=== PATIENT | female | born 1975 | race African-American/Black ===

== ENCOUNTER 2019-07-01 08:52 | Day surgery (SDC) | payer BC ==
[2019-06-30 17:52] VITALS: BMI 28.7
[2019-07-01 10:43] VITALS: TEMP 98.3
[2019-07-01 11:10] VITALS: BP 118/66; PULSE 63
== END 2019-07-01 11:14 | disposition home or self-care (01) ==
LOC: JASU-SURG 08:52
PROVIDERS: ATTEND Internal Medicine Gastroenterology
PROC: 0DJD8ZZ Inspection of Lower Intestinal Tract, Via Natural or Artificial Opening Endoscopic (ICD-10-PCS; principal; 2019-07-01 08:45)
DX: Z12.11 Encounter for screening for malignant neoplasm of colon (principal); K57.30 Diverticulosis of large intestine without perforation or abscess without bleeding
CPT/HCPCS: 81025